=== PATIENT | female | born 1940 | race Caucasian/White ===

== ENCOUNTER → 2023-06-01 | Outpatient (CLI) | payer MEDICARE, SELFPAY ==
--- NOTE | 2023-06-01 13:52 | CT_ITS ---
STUDY: CT ABDOMEN AND PELVIS WITHOUT CONTRAST REASON FOR EXAM: Female, 82 years old. NEOPLASM OF R KIDNEY RADIATION DOSAGE (If Supplied By Facility): CTDIvol = ( 20.46 ) mGy, DLP = ( 918.62 ) mGycm TECHNIQUE: Transaxial images were obtained from the dome of the diaphragm to the symphysis pubis without oral contrast, and without intravenous contrast. Sagittal and coronal images were reconstructed. Individualized dose optimization techniques were used for this CT. COMPARISON: None. FINDINGS: Minimal increased markings at the lung bases suggestive of atelectasis and/or scarring. Coronary artery calcification. Normal liver. Normal gallbladder and extrahepatic biliary system. Normal spleen. There is diffuse atrophy of the pancreas. Normal bilateral adrenal glands. There is a 3.4 cm x 4 cm x 3.3 cm solid nodule in the inferior medial aspect of the right kidney. Normal left kidney. There is a small hiatal hernia. Normal small intestine. Normal colon. The appendix is visualized and appears normal. There is diffuse atherosclerotic calcification of the abdominal aorta, without a demonstrated aneurysm. Normal inferior vena cava. Normal retroperitoneum. Normal urinary bladder. Calcified fibroid uterus. There is a small umbilical hernia containing fat. There are diffuse degenerative changes of the visualized lumbar spine. CT/Abdomen/Pelvis without Cont IMPRESSION: 3.4 cm x 4 cm x 3.63 sinus all nodule inferior medial aspect of the right kidney. A neoplastic process should be ruled out. Electronically Signed: Chester Barton MD at 15:10 EDT ,
== END | disposition home or self-care (01) ==
PROVIDERS: Referring Provider Urology; Visit Provider Urology
DX: D41.01 Neoplasm of uncertain behavior of right kidney (principal)
CPT/HCPCS: 74176

== ENCOUNTER → 2023-07-06 | Outpatient (CLI) | payer MEDICARE, SELFPAY ==
--- NOTE | 2023-07-06 10:46 | MRI_ITS ---
INDICATION: NEOPLASM RT KIDNEY -- CHANGED TO W/O D/T KIDNEY FUNCTION GFR 25 EXAMINATION: MRI - MR Abdomen W/O Contrast TECHNIQUE: Multiplanar and multisequence MR images of the abdomen were obtained. COMPARISON: June 01, 2023 FINDINGS: LOWER CHEST: Lung bases are clear. No cardiomegaly or pericardial effusion. LIVER: Homogeneous. No focal mass. GALLBLADDER AND BILIARY TREE: No filling defects in the gallbladder. No gallbladder distension or wall edema. No intra- or extrahepatic biliary ductal dilation. PANCREAS: No focal cystic or solid mass. SPLEEN: Normal size without focal cystic or solid mass. ADRENAL GLANDS: No nodules. KIDNEYS AND URETERS: There is a multiseptated 3.8 x 3 cm complex cystic lower pole lesion in the right kidney. No hydronephrosis. PERITONEUM: No ascites or free air. No other fluid collection. LYMPH NODES: No enlarged mesenteric or retroperitoneal lymph nodes. VESSELS: Aorta is non-dilated. MRI/Abdomen without Contrast IMPRESSION: Complex septated right renal cystic lesion requiring further evaluation. Electronically Signed: Travis Lubin DO at 20:56 EDT Reading Location ID and State: [facility] / [place] Tel [phone], Service support ,
== END | disposition home or self-care (01) ==
PROVIDERS: Referring Provider Urology; Visit Provider Urology
DX: D41.01 Neoplasm of uncertain behavior of right kidney (principal)
CPT/HCPCS: 74181

== ENCOUNTER → 2023-08-20 | Outpatient (CLI) | payer MEDICARE, SELFPAY ==
--- NOTE | 2023-08-20 | ASPIGT_PTH ---
PATIENT: MITCHELL BECERRIL LOC: CT U#:[id number] AGE/SX: 82/F ROOM: RE08/20/[address]: Dr. 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 See comment. JAZMIN:tutu 08/21/2023 COMMENT The specimen is evaluated at the time of biopsy by Dr. Mackenzie. Immediate Evaluation = Atypical cells suspicious for malignancy noted. Immunohistochemistry ([id number]) supports the above diagnosis. Molecular studies on the tumor can be performed if clinically indicated. Please notify the laboratory if they are needed. Case has been reviewed in consultation with Dr. Zapata who concurs with the above diagnosis. IDC:AM MICROSCOPIC DESCRIPTION Slides are reviewed. GROSS DESCRIPTION Received in fixative is one container labeled with the patient's name and designated right kidney mass. The specimen consists of multiple irregular fragments of light mills soft tissue that in aggregate measure 1.0 x 0.1 x 0.1 cm. The specimen is totally submitted in one cassette. Four touch imprints are prepared at the time of core biopsy. / SJ:rg 08/20/2023 TC:0 CPT: 92825, 48161
--- NOTE | 2023-08-20 | IMM_PTH ---
PATIENT: MITCHELL BECERRIL LOC: CT U#:[id number] AGE/SX: 82/F ROOM: RE08/20/[address]: Dr. Wenceslao Meneses MD : 1940 BED: DIS: 08/20/2023 SPEC #: [id number] RECD: 08/21/23 13:33 STATUS: HARMAN REQ #: [id number] PRACHI: 08/20/23 00:[address]: Wenceslao Meneses DEPT: IMMUNOHISTOCHEMISTRY RECD BY: Lottie Puente Tissues: Kidney, NOS Procedures: RCC (add) NAPSIN A (add) CD10 (add) CK20 (add) CK5-6 (add) CK7 (add) CK8 (add) HEP PAR (add) NY (add) TTF1 (add) Vimentin (add) Pankeratin (add) P40 (add) ER (initial) PHYSICIAN & INSTITUTION [place] [phone] SPECIMEN INFORMATION: Tissue Source: Right kidney mass Clinical Info: Right kidney mass Specimen Number: [id number] CPT code: 15951, 37216 x13 METHODOLOGY: Deparaffinized sections of prefer/formalin-fixed tissue or PAP/DQ stained slides are incubated with monoclonal/polyclonal antibodies/oligonucleotide probes. Localization is made via biotin free immunoperoxidase method. Appropriate controls are performed and reacted as expected. Results on target cell population are indicated in the following table: RESULTS: ANTIBODY / CLONE RESULT ER (6F11) negative NY (1E2) negative AE1-3 (AE1/AE3/PCK26) positive CK7 (OV-TL12/30) negative CK8 (32btkfW04) positive CK20 (KS20.8) negative CD10 (56C6) positive, focal Vimentin (V9) positive TTF-1 (8G7G3/1) negative Napsin A (Rabbit Polyclonal) negative HepPar (OCh1E5) negative RCC (PN-15) negative CK5-6 (D5 & 1684) negative P40 (BC28) negative These tests were developed and their performance characteristics determined by [facility]. They may not have been cleared or approved by the U.S. Food and Drug Administration. The FDA has determined that such clearance or approval is not necessary. The above immunohistochemical/dualISH markers are ordered and reviewed by the Pathologist. INTERPRETATION: Right kidney mass, CT-guided core biopsy: Clear cell renal cell carcinoma. JAZMIN:tutu 08/22/2023 Case has been reviewed in consultation with Dr. Zapata who concurs with the above diagnosis. IDC:AM
--- NOTE | 2023-08-20 08:23 | CT_ITS ---
PROCEDURE: CT GUIDED PERCUTANEOUS KIDNEY BIOPSY. DATE: August 20, 2023. INDICATION: Female, 82 years old. Solid nodule in the lower pole of the right kidney. PHYSICIAN: Chesetr Barton M.D. MEDICATIONS: 2 mg of Versed and 50 mcg of fentanyl intravenously. ACCESS SITE: Lower pole right kidney. NEEDLE: 18-gauge core biopsy needle. SPECIMEN: 5, 18-gauge cores were obtained. EBL: None. COMPLICATIONS: None immediate. RADIATION DOSAGE (If Supplied By [facility]): CTDIvol = ( 21.5 ) mGy, DLP = ( 595.68 ) mGycm. Individualized dose optimization techniques were utilized. The risks, benefits, and alternatives to the procedure and sedation were explained to the patient. The specific risk of hemorrhage requiring further treatment or intervention was detailed and accepted. Written informed consent was obtained. The patient was placed on the CT table in the prone position. Multiple axial images were obtained from the lung base through the caudal extent of the kidneys. An appropriate entry site was identified and a davis made on the skin. The skin overlying the [right ] posterior flank was prepped and draped in sterile fashion. 1% lidocaine was administered subcutaneously for local anesthesia. Initially, a 22 gauge needle was advanced and CT images confirmed good needle position. The 22 gauge needle was then exchanged for an 17 gauge introducer needle which was advanced. Repeat CT images confirmed good needle trajectory and tip position. The introducer needle was then advanced into the periphery of the inferior renal pole, and CT images were again obtained to confirm exact tip location. The inner stylet of the introducer needle was then removed and an 18 gauge coaxial needle was advanced thru the introducer needle and biopsy performed. A total of [ ] passes were performed and the specimen collected was sent to Pathology for further evaluation. The needle was withdrawn. Hemostasis was achieved with manual compression and a sterile dressing was applied. Repeat CT images of the biopsy area was performed which demonstrated no gross bleeding or hematoma. The patient tolerated the procedure well without immediate complications. The patient was transported to the [floor/recovery area] in stable condition. CT/Biopsy/Inj or Needle Placement IMPRESSION: Successful CT guided percutaneous kidney biopsy. Electronically Signed: Chester Barton MD at 10:39 EDT ,
[2023-08-20 08:45] LABS: Absolute Lymphocyte Count 0.96 X10^3/uL (0.83-4.51); Absolute Neutrophil Count 5.7 X10^3/uL (2.0-7.7); Basophil# 0.06 X10^3/uL; Basophil% 0.8 % (0-1); Eosinophil# 0.26 X10^3/uL; Eosinophils% 3.3 % (0-5); Hematocrit 38.6 % (37-47); Hemoglobin 12.1 g/dL (12.0-15.0); Lymphocyte # 0.96 X10^3/ul (0.83-4.51); Lymphocyte % 12.2 % (19-41); Mean Corp Hgb Conc 31.3 g/dL (32-36); Mean Corpuscular Hgb 30.5 pg (27.0-32.0); Mean Corpuscular Volume 97.2 fL (81-99); Mean Platelet Vol. 12.3 fl (6.2-12.0); Monocyte# 0.84 X10^3/uL; Monocyte% 10.7 % (0-10); NRBC Flagged by Analyzer 0 % (0-5); Neutrophil # 5.69 X10^3/uL (2.7-7.7); Neutrophil % 72.5 % (47-70); Platelet Count 199 K/mm3 (150-450); RBC Distribution Width CV 15.1 % (11.6-14.6); RBC Distribution Width SD 54.1 fl (35.1-43.9); Red Blood Count 3.97 M/mm3 (4.2-5.4); White Blood Count 7.9 K/mm3 (4.4-11.0)
[2023-08-20 08:55] LABS: International Normalized Ratio 1.1; Prothrombin Time (Protime)PT. 14.6 SECONDS (11.7-14.9)
[2023-08-20 08:56] LABS: Partial Thromboplast Time 30.8 Seconds (24.1-36.2)
[2023-08-20 09:06] VITALS: BP 126/33; PULSE 63; RESP 17; TEMP 36.1; O2SAT 97; BMI 36.2
[2023-08-20] MEDS: 0.9% Normal Saline (250mL Bag) 250 ML 15 ML IV (09:26)
[2023-08-20] MEDS: 0.9% Saline Lock 10 ML Syringe IV (09:26)
[2023-08-20] MEDS: Midazolam 2 MG/2 ML Syringe IV (09:51)
[2023-08-20] MEDS: fentaNYL 100 MCG/2 ML Ampul IV (09:52)
[2023-08-20 09:59] VITALS: BP 142/57; BP 47/16; BP 58/19; BP 62/21; BP 65/15; PULSE 55; PULSE 59; PULSE 61; PULSE 62; PULSE 66; RESP 11; RESP 14; RESP 15; RESP 16; RESP 20; O2SAT 100; O2SAT 92; O2SAT 93; O2SAT 94; O2SAT 95
[2023-08-20] MEDS: Lidocaine 2% (20 ml mdv) 20 ML Vial INFILT (10:07)
[2023-08-20 10:16] VITALS: BP 116/88; BP 126/33; PULSE 65; RESP 13; O2SAT 95
[2023-08-20 10:21] VITALS: BP 113/43; BP 126/33; PULSE 62; RESP 19; O2SAT 95
[2023-08-20 10:26] VITALS: BP 126/33; BP 128/40; PULSE 64; RESP 17; O2SAT 96
--- NOTE | 2023-08-20 10:56 | PCM.OP.PRO ---
Procedure Report Date of Procedure: 08/20/23 Assessment & Plan Assessment/Plan (1) Right renal mass: PLAN: PROCEDURE: CT GUIDED PERCUTANEOUS KIDNEY BIOPSY of right kidney mass ORDERING PROVIDER: Dr. Meneses INDICATION: Female, 82 years old. Right kidney mass of the lower pole. PROVIDER: MAVIS Chau MEDICATIONS: 2 mg of Versed and 50 mcg of fentanyl intravenously. Procedural sedation was started at 0951 and terminated at 1015. The patient was monitored by the department nurse. ACCESS SITE: Lower pole of the right kidney. NEEDLE: 18-gauge core biopsy needle system. SPECIMEN: 5 18-gauge cores of the right kidney. EBL: None. COMPLICATIONS: None immediate. RADIATION DOSAGE (If Supplied By Facility): CTDIvol = 22.55 mGy, DLP = 595.68 mGycm. Individualized dose optimization techniques were utilized. TECHNIQUE: The risks, benefits, and alternatives to the procedure and sedation were explained to the patient. The specific risk of hemorrhage requiring further treatment or intervention was detailed and accepted. Written informed consent was obtained. The patient was placed on the CT table in the prone position. Multiple axial images were obtained from the lung base through the caudal extent of the kidneys. An appropriate entry site was identified and a davis made on the skin. The skin overlying the right posterior flank was prepped and draped in sterile fashion. 2% lidocaine was administered subcutaneously for local anesthesia. Using CT guidance, an 18-gauge coaxial biopsy device was advanced to the periphery of the right renal lesion. A total of 5 core specimens were obtained. Specimens were microscopically reviewed by pathology in the CT suite and placed in formalin solution for further analysis. The needle was withdrawn. Hemostasis was achieved with manual compression and a sterile dressing was applied. The patient tolerated the procedure well without immediate complications. The patient returned to the holding bay in stable condition for nursing monitoring, per protocol. IMPRESSION: 1. Successful CT guided percutaneous right kidney biopsy. Pathology results are pending. 2. Procedural Sedation protocol utilized with independent monitoring by the department nurse. Procedures Radiology Radiology CT Procedures: 60677 Biopsy Kidney
[2023-08-20 12:06] VITALS: BP 126/33; BP 129/87; PULSE 62; RESP 18; O2SAT 96
== END | disposition home or self-care (01) ==
LOC: CT 08:20
PROVIDERS: Nurse Practitioner Acute Care; Referring Provider Urology; Visit Provider Urology
DX: C64.1 Malignant neoplasm of right kidney, except renal pelvis (principal)
CPT/HCPCS: 50200; 36415; 77012; 85025; 85610; 85730; 88172; 88305; 88313; 88341; 88342; 99156; J7050; A4216

== ENCOUNTER 2023-09-26 15:21 | Inpatient (IN) | payer MEDICARE, SELFPAY ==
--- NOTE | 2023-09-17 13:44 | EKG12_ITS ---
Test Reason : PREOP Blood Pressure : / mmHG Vent. Rate : 075 BPM Atrial Rate : 071 BPM P-R Int : 000 ms QRS Dur : 108 ms QT Int : 398 ms P-R-T Axes : 000 087 -04 degrees QTc Int : 444 ms Atrial fibrillation Abnormal ECG Confirmed by QAMAR JOAQUIN, JOSE ([id number]), script editor VINICIUS BLANCO ([id number]) on 09/18/2023 7:12:28 AM Referred By: Wenceslao Meneses Confirmed By:JOSE FOOTE MD
[2023-09-17 14:35] LABS: Hematocrit 38.3 % (37-47); Hemoglobin 12.1 g/dL (12.0-15.0); Mean Corp Hgb Conc 31.6 g/dL (32-36); Mean Corpuscular Hgb 30.7 pg (27.0-32.0); Mean Corpuscular Volume 97.2 fL (81-99); Mean Platelet Vol. 12.5 fl (6.2-12.0); Platelet Count 199 K/mm3 (150-450); RBC Distribution Width CV 15.5 % (11.6-14.6); RBC Distribution Width SD 55.3 fl (35.1-43.9); Red Blood Count 3.94 M/mm3 (4.2-5.4); White Blood Count 7.7 K/mm3 (4.4-11.0)
[2023-09-17 14:58] LABS: Anion Gap 3 (5-15); BUN 60 mg/dL (7-18); BUN/Creat Ratio 20.5 RATIO (10-20); Calcium,Total 11.3 mg/dL (8.5-10.1); Chloride 107 mmol/L (98-107); Creatinine, Serum 2.93 mg/dL (0.55-1.02); EST Glomerular Filtration Rate 16 mL/min (>60); Est Glom Filt Rate - Afr Amer 20 mL/min (>60); Glucose 177 mg/dL (74-106); Potassium 4.6 mmol/L (3.5-5.1); Sodium Level 140 mmol/L (136-145)
[2023-09-26] VITALS (14 sets, daily range): BP systolic 110–162; BP diastolic 35–98; PULSE 60–88; RESP 16–18; TEMP 36.1–36.9; O2SAT 95–100; BMI 34.7
[2023-09-26] MEDS: Lactated Ringers 1,000 ML 15 ML IV (09:55)
[2023-09-26 10:35] LABS: Bedside Glucose 156 mg/dL (74-106)
--- NOTE | 2023-09-26 11:11 | PCM.HP.STD ---
HPI - General General Date of Service: 09/26/23 Chief Complaint: Right renal mass HPI Narrative MITCHELL BECERRIL, is a 83 F who presents for a right partial nephrectomy she had a biopsy of a renal mass that demonstrated renal cell carcinoma so organ to proceed with a robotic right partial nephrectomy plan to do selective clamping [facility] Medical History (Updated 09/12/23 @ 10:44 by Amee Hernandez) Back pain Bleeding hemorrhoids Cardiology follow-up encounter Diabetes Dietary restriction Gastric reflux Gout High cholesterol History of atrial fibrillation History of CHF (congestive heart failure) History of echocardiogram History of edema History of heart attack History of renal disease History of stress test Hypertension Leg cramps Low iron Migraine headache Non-smoker Post-menopausal Ventral hernia Wears glasses Home Medications allopurinol 100 mg tablet 100 mg PO DAILY 08/20/23 [History Last Taken 09/25/23] apixaban 2.5 mg tablet (Eliquis) 2.5 mg PO BID 08/20/23 [History Last Taken 09/22/23] calcitriol 0.5 mcg capsule 0.5 mcg PO DAILY 08/20/23 [History Last Taken 09/25/23] dapagliflozin propanediol 10 mg tablet (Farxiga) 10 mg PO DAILY 08/20/23 [History Last Taken 09/25/23] diltiazem HCl 240 mg capsule,extended release 24 hr 240 mg PO DAILY 08/20/23 [History Last Taken 09/26/23 06:30] ferrous sulfate 325 mg (65 mg iron) tablet (FeroSul) 325 mg PO .QOD 08/20/23 [History Last Taken 09/24/23] finerenone 10 mg tablet (Kerendia) 10 mg PO QHS 08/20/23 [History Last Taken 09/25/23] furosemide 40 mg tablet 40 mg PO DAILY 08/20/23 [History Last Taken 09/25/23] linagliptin 5 mg tablet (Tradjenta) 5 mg PO DAILY 08/20/23 [History Last Taken 09/25/23] losartan 100 mg tablet 100 mg PO DAILY 08/20/23 [History Last Taken 09/26/23 06:30] metoprolol succinate 100 mg tablet,extended release 24 hr 100 mg PO BID 08/20/23 [History Last Taken 09/26/23 06:30] rosuvastatin 20 mg tablet 20 mg PO QHS 08/20/23 [History Last Taken 09/25/23] esomeprazole magnesium 20 mg capsule,delayed release (Nexium) 20 mg PO DAILY 09/12/23 [History Last Taken 09/26/23 06:30] multivitamin (Daily Multi-Vitamin tablet) 1 tab PO DAILY 09/12/23 [History Last Taken 09/25/23] Allergy/AdvReac Type Severity Reaction Status Date / Time Sulfa (Sulfonamide Allergy Mild Hives Verified 09/26/23 10:04 Antibiotics) Surgical History (Updated 09/12/23 @ 10:44 by Amee Hernandez) History of cardiac catheterization Hx of appendectomy Hx of heart artery stent Hx of heart bypass surgery Hx of left cataract extraction Hx of lumpectomy Hx of right cataract extraction Social History Smoking Status: Never smoker Vital Signs Vital Signs Vital Signs: 09/26/23 10:07 09/26/23 10:07 Temperature 98.4 F Temperature Source Temporal Pulse Rate 75 Respiratory Rate 18 Respiratory Pattern Normal Blood Pressure 125/35 H Blood Pressure Mean 65 Blood Pressure Source Monitor Blood Pressure Position Sitting Blood Pressure Location Right Arm Pulse Ox 95 Oxygen Delivery Method Room Air Weight Weight: 86 kg Body Mass Index (BMI) 34.7 Results Lab / Micro Data 09/17/23 13:57 09/17/23 13:57 Labs: Laboratory Results - last 24 hr 09/26/23 09:44: POC Glucose 156 H
--- NOTE | 2023-09-26 11:35 | KID_PTH ---
PATIENT: MITCHELL BECERRIL LOC: MS3 U#:[id number] AGE/SX: 83/F ROOM: CO314 RE09/26/[address]: Dr. Wenceslao Meneses MD : 1940 BED: 1 DIS: 09/29/2023 SPEC #: [id number] RECD: 09/26/23 16:53 STATUS: HARMAN PATELMorgan #: [id number] PRACHI: 09/26/23 11:[address]: Wenceslao Meneses DEPT: SURGICAL PATHOLOGY RECD BY: Katherin Bennett Tissues: Kidney, NOS Procedures: Surgery Specimen Level V HEADER OPERATION: Laparoscopic robotic partial nephrectomy PRE-OP DIAGNOSIS: Renal cell carcinoma TISSUE SUBMITTED: Right renal mass MICROSCOPIC DIAGNOSIS Right renal mass, partial nephrectomy: Clear cell renal cell carcinoma. See comment. AM:tutu 10/01/2023 COMMENT KIDNEY CANCER SUMMARY Procedure - radical nephrectomy Specimen laterality - right kidney Tumor size - 4.5 x 3.2 x 3.2 cm Tumor focality - single focus Histologic type - clear cell renal cell carcinoma Sarcomatoid features - not identified Rhabdoid features - not identified Histologic grade - grade 2-3/4 Tumor necrosis - absent Tumor extension - tumor limited to kidney Margins - uninvolved by invasive carcinoma Lymphvascular invasion - not identified Regional lymph nodes - no lymph nodes found. Non-neoplastic kidney - mild arterionephrosclerosis and focal chronic inflammation. PATHOLOGIC STAGE: T1b Nx Mx The above summary is in compliance with [employer] (CAP) Cancer Protocols Checklist and [place] Joint Committee on Cancer (AJCC), Staging Manual, 8th Ed. Reference is made to the patient's previous right kidney mass CT-guided core biopsy ([id number]) in which clear cell carcinoma was identified. Case has been reviewed in consultation with Dr. Mackenzie who concurs with the above diagnosis. IDC:SJ MICROSCOPIC DESCRIPTION Slides are reviewed. GROSS DESCRIPTION Received in fixative is one container labeled with the patient's name and designated right renal mass. The specimen consists of a partial nephrectomy specimen weighing 44.7 gm and measuring 5.5 x 4.0 x 4.0 cm. A small amount of perirenal adipose tissue is present. The specimen is inked as follows: parenchymal resection margin - black, rest of the surface - blue. Sections reveal a mills-yellow, focally hemorrhagic mass occupying 90% of the specimen measuring 4.5 x 3.2 x 3.2 cm. A layer of necrosis is also noted. The tumor appears to be confined within the kidney. Street Worker sections are submitted in ten cassettes. Cassette 10 contains the uninvolved portion of renal parenchymal tissue including perirenal adipose tissue. Sections will be submitted after additional fixation. / SJ:tutu 09/27/2023 TC:0 CPT: 08244
[2023-09-26] MEDS: Cefazolin 2 GM in 0.9% Normal Saline (100mL Bag) 100 ML IV (11:59)
[2023-09-26] MEDS: Bupivacaine Mpf 0.5% 30 ML VIAL (12:36)
--- NOTE | 2023-09-26 15:23 | DCINST_ITS ---
Discharge Instructions Diet Discharge Diet: No restrictions and Light diet - advance as tolerated Activity Discharge Activity: May Not Drive Dressing / Incision Cleanse incision/area with: Soap & Water Catheter: Hutchins to leg bag and Hutchins to large bag Drain: [place] Follow Up Care Please Follow Up With: Wenceslao Meneses MD When: 2 weeks Test Results: Test results from this visit will be discussed in further detail at your follow- up appointment, if applicable. Discharge Plan Admission Primary Reason for Your Visit: Right partial nephrectomy Attending Provider: Wenceslao Meneses Primary Care Provider: BRANDY BECERRIL Discharge Orders/Prescriptions Prescriptions: New docusate sodium [Colace] 100 mg capsule 100 mg PO BID Qty: 20 0RF oxycodone 5 mg tablet 5 mg PO Q6H PRN (Reason: pain) 7 Days Qty: 14 0RF Continued furosemide 40 mg tablet 40 mg PO DAILY Patient Comments: TAKE ONE TABLET BY MOUTH EVERY DAY diltiazem HCl 240 mg capsule,extended release 24hr 240 mg PO DAILY Patient Comments: TAKE ONE CAPSULE BY MOUTH DAILY metoprolol succinate 100 mg tablet extended release 24 hr 100 mg PO BID Patient Comments: TAKE ONE TABLET BY MOUTH TWICE DAILY allopurinol 100 mg tablet 100 mg PO DAILY Patient Comments: TAKE ONE TABLET BY MOUTH EVERY DAY ferrous sulfate [FeroSul] 325 mg (65 mg iron) tablet 325 mg PO .QOD Patient Comments: TAKE ONE TABLET BY MOUTH EVERY OTHER DAY calcitriol 0.5 mcg capsule 0.5 mcg PO DAILY Patient Comments: TAKE ONE CAPSULE BY MOUTH EVERY DAY losartan 100 mg tablet 100 mg PO DAILY Patient Comments: TAKE ONE TABLET BY MOUTH DAILY rosuvastatin 20 mg tablet 20 mg PO QHS Patient Comments: TAKE ONE TABLET BY MOUTH EVERY DAY Tradjenta 5 mg tablet 5 mg PO DAILY Patient Comments: TAKE ONE TABLET BY MOUTH EVERY DAY Farxiga 10 mg tablet 10 mg PO DAILY Patient Comments: TAKE ONE TABLET BY MOUTH EVERY DAY Kerendia 10 mg tablet 10 mg PO QHS Patient Comments: TAKE ONE TABLET BY MOUTH EVERY DAY multivitamin [Daily Multi-Vitamin] Tablet 1 tab PO DAILY esomeprazole magnesium [Nexium] 20 mg capsule,delayed release(DR/EC) 20 mg PO DAILY Held Eliquis 2.5 mg tablet 2.5 mg PO BID Hold Instructions: Resume on 10/10/23. Patient Comments: TAKE ONE TABLET BY MOUTH TWICE DAILY Referrals / Follow Up: BRANDY BECERRIL [Other] Disposition Disposition (needs filled in before D/C Order can be placed): Home, Self Care
--- NOTE | 2023-09-26 15:24 | OP.PCM_ITS ---
Report of Operation Date of Procedure: 09/26/23 Pre-Operative Diagnosis: Right renal mass Post-Operative Diagnosis: The same Surgery/Procedure Performed:: Laparoscopic robotic assisted right partial nephrectomy Description of Surgical Findings:: 83-year-old female presents for a right partial nephrectomy she has an enhancing mass in the lower pole this has been biopsied and proven proven to be renal cell carcinoma so today we plan to do a partial resection and do a partial nephrectomy to remove the tumor Patient was taken back to the operating room at the smooth induction of general anesthesia she was placed supine on the table Colon catheter was placed she was then plain put on full flank position with the right side up for a anterior approach to the right kidney laparoscopically with the da [place] robot assisted. We first placed a Veress needle into the peritoneal cavity and and filled the peritoneal cavity CO2 gas and then placement camera trocar and then right arm trocar I then used scissors to take down some adhesions that were interfering with her way we then put a rest of our trocars then we then docked the robot and started by reflecting the colon off the kidney reflected all the way down to the off the lateral sidewall all the way inferiorly to the pelvis and then worked her way back up and then freed up the kidney off the liver once the liver was retracted up and freed off the kidney with adhesions then we got underneath Gerota's fascia elevated this up using the fourth arm to hold this up marched away up until we encountered the gonadal vein this was taken with clips then we went to the renal hilum extensive dissection was done at the renal hilum until I discovered 3 arteries and 2 veins I then placed a vessel Vesseloops on 2 arteries and then we planned the bulldog the third larger artery. I then flipped the kidney completely towards this to get to the renal tumor that was posterior lower pole once the kidney was flipped up completely then identified the tumor all the fat was cleared off the edges of the tumor circumferentially I then scored the edges of the resection site the tumor only went slightly deep into the kidney I then used electrocautery to score the edge away all the way around the tumor for the resection site we then clamped the artery with 2 bulldogs on the artery main artery and we cinched down the Vesseloops on the 2 smaller arteries the kidney went completely pale white there is no perfusion the then tumor was then we just resected completely and a complete resection of the tumor was done and then I cauterized the base with with cauterization I then ran the base with 3 oh strata fix stitch and a 3 oh V-Loc stitch to control for vessel bleeding we then reapproximated the atrial edges with a running 0 Vicryl using clips as we ran it to approximate the edges together the bulldog and was taken off the artery and the vessel loop was taken off the artery and then we checked and there was no bleeding from the resection site small little bit oozing we then placed Surgicel and Floseal on the resection site and then approximated across again with a Vicryl stitch to hold this in place and then at this point then we removed the tumor that was put in Endo Catch bag at the resection time and extracted through the lower incision through the fourth port the port was then closed directly we then went back in after 10 minutes with no pneumoperitoneum we looked at the kidney and there was no bleeding whatsoever from the resection site kidney looked nice and pink and healthy and viable. Then at this point then we closed the air seal port over the 10-10 12 Hiro s titch all the ports were then removed patient's anesthetic was reversed blood loss was about 500 cc patient is currently being extubated from anesthesia and can be taken back to the PACU she is in stable condition currently. Surgeon: Wenceslao Meneses Type of Anesthesia: General Drains: colon Estimated Blood Loss (mL): 500 Admit VTE Documentation VTE Present on Admission: No VTE Mechan Device Prophylaxis: SCD's VTE Pharm Prophylaxis ordered?: No
[2023-09-26 16:31] LABS: Bedside Glucose 191 mg/dL (74-106)
[2023-09-26] MEDS: 0.9% Normal Saline (1000mL) 1,000 ML 125 ML IV (18:27)
[2023-09-26] MEDS: Ferrous Sulfate 325 MG Tablet PO (18:30)
[2023-09-26] MEDS: Docusate Sodium 100 MG Capsule 200 MG PO (20:30)
[2023-09-26] MEDS: Atorvastatin Calcium 40 MG Tablet PO (20:31)
[2023-09-26] MEDS: Metoprolol(XL)Succ 100 MG Tablet PO (20:31)
[2023-09-27] VITALS (7 sets, daily range): BP systolic 106–139; BP diastolic 54–70; PULSE 76–88; RESP 16–18; TEMP 36.3–37.3; O2SAT 93–96
[2023-09-27] MEDS: 0.9% Normal Saline (1000mL) 1,000 ML 125 ML IV (03:35)
--- NOTE | 2023-09-27 07:24 | PCM.PN.GU ---
Subjective Subjective 83-year-old female status post right partial nephrectomy for renal cell carcinoma. She is doing fairly well blood pressure stable urine output is good I think we can Hep-Lock her fluids DC Hutchins and have her ambulate and advance diet as tolerate anticipate discharge probably tomorrow Objective Data Objective Data Vital Signs: Vital Signs Temp Pulse Resp BP Pulse Ox O2 Del Method O2 Flow Rate 99.2 F H 76 18 139/54 H 96 Nasal Cannula 1 09/27/23 05:12 09/27/23 05:12 09/27/23 05:12 09/27/23 05:12 09/27/23 05:12 09/27/23 05:12 09/27/23 05:12 Oxygen Flow Rate (L/min) 1 Oxygen Delivery Method Nasal Cannula Weight: 86 kg Body Mass Index (BMI) 34.7 Intake & Output: Intake and Output for Last 24 Hours 09/25/23 09/26/23 09/27/23 23:59 23:59 23:59 Intake Total 2246.25 / 2246.25 1000 / 1000 Output Total 180 / 180 350 / 350 Balance 2066.25 / 2066.25 650 / 650 Lab / Micro Data 09/17/23 13:57 09/17/23 13:57 Labs: Laboratory Results - last 24 hr 09/26/23 09:44: POC Glucose 156 H 09/26/23 16:12: POC Glucose 191 H
[2023-09-27 08:05] LABS: Hematocrit 33.8 % (37-47); Hemoglobin 10.7 g/dL (12.0-15.0); Mean Corp Hgb Conc 31.7 g/dL (32-36); Mean Corpuscular Hgb 30.8 pg (27.0-32.0); Mean Corpuscular Volume 97.4 fL (81-99); Mean Platelet Vol. 12.2 fl (6.2-12.0); Platelet Count 168 K/mm3 (150-450); RBC Distribution Width CV 15.5 % (11.6-14.6); RBC Distribution Width SD 54.5 fl (35.1-43.9); Red Blood Count 3.47 M/mm3 (4.2-5.4); White Blood Count 11.9 K/mm3 (4.4-11.0)
[2023-09-27] MEDS: Allopurinol 100 MG Tablet PO (08:13)
[2023-09-27] MEDS: Multivitamins,Therapeutic Tablet 1 TABLET PO (08:13)
[2023-09-27 08:44] LABS: Anion Gap 8 (5-15); BUN 46 mg/dL (7-18); BUN/Creat Ratio 16.7 RATIO (10-20); Calcium,Total 9.8 mg/dL (8.5-10.1); Chloride 107 mmol/L (98-107); Creatinine, Serum 2.76 mg/dL (0.55-1.02); EST Glomerular Filtration Rate 18 mL/min (>60); Est Glom Filt Rate - Afr Amer 21 mL/min (>60); Estimated Creatinine Clearance 12.64 ml/min; Glucose 179 mg/dL (74-106); Potassium 4.1 mmol/L (3.5-5.1); Sodium Level 138 mmol/L (136-145)
[2023-09-27] MEDS: Metoprolol(XL)Succ 100 MG Tablet PO ×2 (09:18→21:01)
[2023-09-27] MEDS: LINAGLIPTIN 5 MG TABLET PO (09:18)
[2023-09-27] MEDS: dilTIAZem CD 240 MG Capsule PO (09:19)
[2023-09-27] MEDS: Pantoprazole Sodium 20 MG Tablet PO (09:19)
[2023-09-27] MEDS: Docusate Sodium 100 MG Capsule 200 MG PO (09:19)
[2023-09-27] MEDS: Calcitriol 0.25 MCG Capsule 0.5 MCG PO (09:19)
[2023-09-27] MEDS: Losartan Potassium 100 MG Tablet PO (09:19)
--- NOTE | 2023-09-27 18:15 | CASEMGMT ---
RN?CM?MEMBER CERTIFICATION MANAGER?CM?to room to meet with patient for initial transition planning/care coordination?assessment.?RN?CM?introduced self and role at [facility].? Pt voices understanding and consents to?assessment?at this time.? Pt sitting up in chair in room in no distress at this time.? Pt is A/O at this time and answers all questions appropriately.?? Care providers, pharmacy, and demographics verified/updated at this time. PCP: CARLOS Sommer @ [facility] Specialists: Dr Lam-urology, Dr Buck-forest ecology professor, Dr Crowe-certified nurse. Preferred Pharmacy: [facility] [place] Insurance: [employer] Prescription Benefit:?yes LNOK: Living Arrangements: lives w/her in one-story condo w/basement and 1 small step to enter. Pt states she is indep @ baseline. Transportation:?Pt and both drive. DME: ? Denies using any DME and denies needs.? HHC/SNF: No hx of either. No needs identified. Pt states does not smoke or drink ETOH.??CM?to follow for any discharge planning/needs.? Pt voices no concerns/needs at this time.? Advised pt to ask for?CM?if any questions/concerns/needs arise.? Voices understanding. PLAN:??Home Rosa ULRICHN?RN?CM
[2023-09-27] MEDS: Atorvastatin Calcium 40 MG Tablet PO (21:01)
[2023-09-27] MEDS: FINERENONE 10 MG TABLET PO (21:01)
[2023-09-28] VITALS (7 sets, daily range): BP systolic 96–145; BP diastolic 56–66; PULSE 75–83; RESP 16–18; TEMP 36.6–37.3; O2SAT 92–97
--- NOTE | 2023-09-28 08:53 | PCM.PN.GU ---
Subjective Subjective 83-year-old female status post right partial nephrectomy she is doing well ambulating tolerating regular food abdomen slightly distended no gas or bowel movements yet she has had some liquid bowel movements. Await for full return of bowel function but I anticipate she probably can go home tomorrow morning. Objective Data Objective Data Vital Signs: Vital Signs Temp Pulse Resp BP Pulse Ox O2 Del Method O2 Flow Rate 98.6 F 83 16 101/66 94 Room Air 1 09/28/23 03:10 09/28/23 03:10 09/28/23 03:10 09/28/23 03:10 09/28/23 03:10 09/28/23 03:10 09/27/23 05:12 Oxygen Flow Rate (L/min) 1 Oxygen Delivery Method Room Air Weight: 86 kg Body Mass Index (BMI) 34.7 Intake & Output: Intake and Output for Last 24 Hours 09/26/23 09/27/23 09/28/23 23:59 23:59 23:59 Intake Total 2246.25 / 2246.25 1837.5 / 1837.5 Output Total 180 / 180 425 / 425 Balance 2066.25 / 2066.25 1412.5 / 1412.5 Lab / Micro Data 09/27/23 07:13 09/27/23 07:13
[2023-09-28] MEDS: Losartan Potassium 100 MG Tablet PO (09:01)
[2023-09-28] MEDS: dilTIAZem CD 240 MG Capsule PO (09:01)
[2023-09-28] MEDS: Metoprolol(XL)Succ 100 MG Tablet PO (09:01)
[2023-09-28] MEDS: Calcitriol 0.25 MCG Capsule 0.5 MCG PO (09:02)
[2023-09-28] MEDS: Ferrous Sulfate 325 MG Tablet PO (09:02)
[2023-09-28] MEDS: Pantoprazole Sodium 20 MG Tablet PO (09:02)
[2023-09-28] MEDS: Allopurinol 100 MG Tablet PO (09:02)
[2023-09-28] MEDS: LINAGLIPTIN 5 MG TABLET PO (09:03)
[2023-09-28] MEDS: Multivitamins,Therapeutic Tablet 1 TABLET PO (09:03)
[2023-09-28] MEDS: Atorvastatin Calcium 40 MG Tablet PO (20:35)
[2023-09-28] MEDS: FINERENONE 10 MG TABLET PO (20:37)
[2023-09-29 04:00] VITALS: BP 134/62; PULSE 103; RESP 18; TEMP 37.2; O2SAT 90
[2023-09-29 07:38] VITALS: O2SAT 95
[2023-09-29 08:22] VITALS: PULSE 73
[2023-09-29] MEDS: Metoprolol(XL)Succ 100 MG Tablet PO (08:22)
[2023-09-29] MEDS: Pantoprazole Sodium 20 MG Tablet PO (08:23)
[2023-09-29] MEDS: Losartan Potassium 100 MG Tablet PO (08:23)
[2023-09-29] MEDS: dilTIAZem CD 240 MG Capsule PO (08:23)
[2023-09-29] MEDS: Multivitamins,Therapeutic Tablet 1 TABLET PO (08:23)
[2023-09-29] MEDS: Allopurinol 100 MG Tablet PO (08:23)
[2023-09-29] MEDS: Calcitriol 0.25 MCG Capsule 0.5 MCG PO (08:23)
[2023-09-29] MEDS: LINAGLIPTIN 5 MG TABLET PO (08:23)
[2023-09-29 09:00] VITALS: BP 113/45; PULSE 90; RESP 15; TEMP 37.2; O2SAT 93
--- NOTE | 2023-10-02 09:10 | DS.PCM_ITS ---
Providers Date of Admission: 09/26/23 Date of Discharge: 09/29/23 Primary Care Physician: BRANDY BECERRIL Reason For Visit: Laparoscopic Robotic Partial Nephre Diagnosis Discharge Diagnosis (1) Kidney malignancy: Status: Acute Code(s): C64.9 - Malignant neoplasm of unspecified kidney, except renal pelvis Medications at Discharge Home Medications allopurinol 100 mg tablet 100 mg PO DAILY 08/20/23 apixaban 2.5 mg tablet (Eliquis) 2.5 mg PO BID 08/20/23 calcitriol 0.5 mcg capsule 0.5 mcg PO DAILY 08/20/23 dapagliflozin propanediol 10 mg tablet (Farxiga) 10 mg PO DAILY 08/20/23 diltiazem HCl 240 mg capsule,extended release 24 hr 240 mg PO DAILY 08/20/23 ferrous sulfate 325 mg (65 mg iron) tablet (FeroSul) 325 mg PO .QOD 08/20/23 finerenone 10 mg tablet (Kerendia) 10 mg PO QHS 08/20/23 furosemide 40 mg tablet 40 mg PO DAILY 08/20/23 linagliptin 5 mg tablet (Tradjenta) 5 mg PO DAILY 08/20/23 losartan 100 mg tablet 100 mg PO DAILY 08/20/23 metoprolol succinate 100 mg tablet,extended release 24 hr 100 mg PO BID 08/20/23 rosuvastatin 20 mg tablet 20 mg PO QHS 08/20/23 esomeprazole magnesium 20 mg capsule,delayed release (Nexium) 20 mg PO DAILY 09/12/23 multivitamin (Daily Multi-Vitamin tablet) 1 tab PO DAILY 09/12/23 docusate sodium 100 mg capsule (Colace) 100 mg PO BID #20 caps 09/26/23 oxycodone 5 mg tablet 5 mg PO Q6H PRN pain 7 days #14 tabs 09/26/23 Hospital Course Summary of Care Provided Hospital Course: unremarkable post op course discharged in good conditiono on post op day #3 Physical Exam Const alert and oriented x3 General Appearance: cooperative HEENT normocephalic, head/scalp atraumatic, EAC's normal and TM's normal bilaterally Eyes PERRL and EOMs intact bilaterally Pupil: sluggish Neck no lymphadenopathy, supple and no JVD General: trachea midline Lymph Lymphatic: no lymphadenopathy noted, lymphedema and lymphadenopathy Resp normal respiratory effort, normal air movement and clear to auscultation bilaterally Cardio regular rate, regular rhythm and peripheral pulses 2+ throughout GI soft to palpation, non-tender and non-distended Extremity normal capillary refill and no clubbing, cyanosis or edema General Extremity: no tenderness to palpation of joints or extremities Skin no rashes or lesions noted General Skin Exam: turgor normal Lesions: no lesions Rashes: no rashes Neuro CN's II-XII intact bilaterally Speech: speech normal Motor Exam: strength 5/5 throughout; Negative for general weakness Psych thought process normal, cooperative and affect normal Appearance: appropriate Weight / BMI Weight Weight: 86 kg Body Mass Index (BMI) 34.7 ABG / Lab / Microbiology Data 09/27/23 07:13 09/27/23 07:13 D/C Instructions Discharge Diet: No restrictions and Light diet - advance as tolerated Cleanse incision/area with: Soap & Water Catheter: Hutchins to leg bag and Hutchins to large bag Drain: [place] Please Follow Up With: Wenceslao Meneses MD When: 2 weeks Meaningful Use Info Meaningful Use Diagnoses (Choose all that apply): None applicable Discharge Plan Admission Admit Date/Time: 09/26/23 15:21 Primary Reason for Your Visit: Right partial nephrectomy Attending Provider: Wenceslao Meneses Primary Care Provider: BRANDY BECERRIL Discharge Orders/Prescriptions Prescriptions: New docusate sodium [Colace] 100 mg capsule 100 mg PO BID Qty: 20 0RF oxycodone 5 mg tablet 5 mg PO Q6H PRN (Reason: pain) 7 Days Qty: 14 0RF Continued furosemide 40 mg tablet 40 mg PO DAILY Patient Comments: TAKE ONE TABLET BY MOUTH EVERY DAY diltiazem HCl 240 mg capsule,extended release 24hr 240 mg PO DAILY Patient Comments: TAKE ONE CAPSULE BY MOUTH DAILY metoprolol succinate 100 mg tablet extended release 24 hr 100 mg PO BID Patient Comments: TAKE ONE TABLET BY MOUTH TWICE DAILY allopurinol 100 mg tablet 100 mg PO DAILY Patient Comments: TAKE ONE TABLET BY MOUTH EVERY DAY ferrous sulfate [FeroSul] 325 mg (65 mg iron) tablet 325 mg PO .QOD Patient Comments: TAKE ONE TABLET BY MOUTH EVERY OTHER DAY calcitriol 0.5 mcg capsule 0.5 mcg PO DAILY Patient Comments: TAKE ONE CAPSULE BY MOUTH EVERY DAY losartan 100 mg tablet 100 mg PO DAILY Patient Comments: TAKE ONE TABLET BY MOUTH DAILY rosuvastatin 20 mg tablet 20 mg PO QHS Patient Comments: TAKE ONE TABLET BY MOUTH EVERY DAY Tradjenta 5 mg tablet 5 mg PO DAILY Patient Comments: TAKE ONE TABLET BY MOUTH EVERY DAY Farxiga 10 mg tablet 10 mg PO DAILY Patient Comments: TAKE ONE TABLET BY MOUTH EVERY DAY Kerendia 10 mg tablet 10 mg PO QHS Patient Comments: TAKE ONE TABLET BY MOUTH EVERY DAY multivitamin [Daily Multi-Vitamin] Tablet 1 tab PO DAILY esomeprazole magnesium [Nexium] 20 mg capsule,delayed release(DR/EC) 20 mg PO DAILY Held Eliquis 2.5 mg tablet 2.5 mg PO BID Hold Instructions: Resume on 10/10/23. Patient Comments: TAKE ONE TABLET BY MOUTH TWICE DAILY Referrals / Follow Up: BRANDY BECERRIL [Other] Disposition Disposition (needs filled in before D/C Order can be placed): Home, Self Care
== END 2023-09-29 12:36 | disposition home or self-care (01) | DRG 657 ==
LOC: SDC 17:29 → MS3 17:29
PROVIDERS: Anesthesiology; Admitting Provider Urology; Referring Provider Urology; Visit Provider Urology
PROC: 0TB04ZZ Excision of Right Kidney, Percutaneous Endoscopic Approach (ICD-10-PCS; CPT 50543; principal; 2023-09-26 11:20)
DX: C64.1 Malignant neoplasm of right kidney, except renal pelvis (principal); N18.4 Chronic kidney disease, stage 4 (severe); E11.22 Type 2 diabetes mellitus with diabetic chronic kidney disease; I48.91 Unspecified atrial fibrillation; I12.9 Hypertensive chronic kidney disease with stage 1 through stage 4 chronic kidney disease, or unspecified chronic kidney disease; E78.00 Pure hypercholesterolemia, unspecified; I25.2 Old myocardial infarction; I25.10 Atherosclerotic heart disease of native coronary artery without angina pectoris; Z95.1 Presence of aortocoronary bypass graft; Z95.5 Presence of coronary angioplasty implant and graft; Z79.01 Long term (current) use of anticoagulants; Z79.84 Long term (current) use of oral hypoglycemic drugs; Z79.899 Other long term (current) drug therapy
CPT/HCPCS: 36415; 80048; 82962; 83036; 85027; 88307; 93005; 94668; 99252; J7030; J7120; G0463; J2405

== ENCOUNTER → 2024-02-12 | Outpatient (CLI) | payer MEDICARE, SELFPAY ==
--- NOTE | 2024-02-12 16:00 | RAD_ITS ---
INDICATION: R KIDNEY CA EXAMINATION/TECHNIQUE: X-RAY - XR Chest 2 Views COMPARISON: None. FINDINGS: LINES/DEVICES: None. LUNGS: Lungs hyperexpanded with coarsened interstitium. No consolidation, florid edema or effusion. No pneumothorax. MEDIASTINUM AND CARDIOVASCULAR STRUCTURES: Cardiac silhouette not enlarged. Mild aortic atherosclerosis. BONES AND SOFT TISSUES: Unremarkable. Sternotomy wires are midline and intact. RAD/Chest PA and Lateral IMPRESSION: Chronic obstructive pulmonary disease No radiographic evidence of acute cardiopulmonary disease. Electronically Signed: Jim Hansen MD at 17:21 EDT ,
[2024-02-12 16:44] LABS: Hematocrit 39.4 % (37-47); Hemoglobin 12.5 g/dL (12.0-15.0); Mean Corp Hgb Conc 31.7 g/dL (32-36); Mean Corpuscular Hgb 30.6 pg (27.0-32.0); Mean Corpuscular Volume 96.3 fL (81-99); Mean Platelet Vol. 12.6 fl (6.2-12.0); Platelet Count 176 K/mm3 (150-450); RBC Distribution Width CV 15.8 % (11.6-14.6); RBC Distribution Width SD 54.7 fl (35.1-43.9); Red Blood Count 4.09 M/mm3 (4.2-5.4); White Blood Count 7.7 K/mm3 (4.4-11.0)
[2024-02-12 17:14] LABS: Anion Gap 5 (5-15); BUN 48 mg/dL (7-18); BUN/Creat Ratio 16.2 RATIO (10-20); Calcium,Total 11.2 mg/dL (8.5-10.1); Chloride 105 mmol/L (98-107); Creatinine, Serum 2.96 mg/dL (0.55-1.02); EST Glomerular Filtration Rate 16 mL/min (>60); Est Glom Filt Rate - Afr Amer 20 mL/min (>60); Glucose 152 mg/dL (74-106); Potassium 4.2 mmol/L (3.5-5.1); Sodium Level 139 mmol/L (136-145)
== END | disposition home or self-care (01) ==
LOC: LAB 15:38
PROVIDERS: PCP Nurse Practitioner Family; Referring Provider Urology; Visit Provider Urology
DX: C64.1 Malignant neoplasm of right kidney, except renal pelvis (principal)
CPT/HCPCS: 36415; 71046; 80048; 85027